=== PATIENT | female | born 1940 | race Two or more races ===

== ENCOUNTER 2017-05-18 20:31 | Inpatient (IN) | payer OTHER ==
[~2017-05-18] VITALS: Ht 30.5 cm; Wt 107.0 kg
[2017-05-18 20:50] VITALS: BP 138/66
[2017-05-18] MEDS ORDERED: ACETAMINOPHEN 325 MG TAB PO PRN (21:45)
[2017-05-18] MEDS ORDERED: ONDANSETRON HCL 4 MG/2 ML VIAL IV PRN (21:45)
[2017-05-18] MEDS ORDERED: FAMOTIDINE 20 MG TAB PO SCH (22:01)
[2017-05-18] MEDS ORDERED: DOCUSATE SOD 100 MG CAP PO SCH (22:01)
[2017-05-18] MEDS ORDERED: cefTRIAXone 1GM/10ml IVPUSH 10 ML IV SCH (22:03)
[2017-05-18] MEDS ORDERED: cefTRIAXone 1GM/10ml IVPUSH 10 ML IV ONE (23:00)
[2017-05-19] MEDS: diphenhdrAMINE HCL 50 MG/1 ML VL IV PRN (00:25)
[2017-05-19 04:55] VITALS: BP 133/70
[2017-05-19 07:03] LABS: INR 1.04 (0.9-1.15); Partial Thromboplastin Time 27.2 sec (22.64-33.71); Prothrombin Time 11.3 sec (9.37-12.3)
[2017-05-19 07:05] LABS: Basophils # (auto) 0 uL; Basophils % (auto) 0.6 % (0.0-2.0); Eosinophils # (auto) 0.4 uL; Eosinophils % (auto) 5.5 % (0.0-7.0); Hematocrit 35.2 % (36.0-46.0); Hemoglobin 11.6 g/dL (12.2-16.2); Lymphocytes # (auto) 3.4 uL; Lymphocytes % (auto) 48.2 % (10.0-50.0); Mean Corpuscular Hemoglobin 29.3 pg (28.0-32.0); Mean Corpuscular Hgb Conc. 32.9 g/dL (32.0-36.0); Mean Corpuscular Volume 88.9 fL (80.0-100.0); Monocytes # (auto) 0.9 uL; Monocytes % (auto) 12.5 % (0.0-12.0); Neutrophils # (auto) 2.4 uL; Neutrophils % (auto) 33.2 % (37.0-80.0); Nucleated Red Blood Cells % 0.1 %; Platelet Count (auto) 284 10^3/uL (140-450); Red Blood Cells 3.96 10^6/uL (4.0-5.20); Red Cell Distribution Width 16.4 % (11.8-14.3); White Blood Cell 7.1 10^3/uL (4.4-10.8)
[2017-05-19 07:39] LABS: BUN/Creatinine Ratio 14.3; Calcium 9.1 mg/dL (8.5-10.1); Potassium 3.6 mmol/L (3.5-5.1)
[2017-05-19 09:00] VITALS: BP 121/67
[2017-05-19] MEDS: DOCUSATE SOD 100 MG CAP PO SCH ×2 (11:33→21:56)
[2017-05-19] MEDS: FAMOTIDINE 20 MG TAB PO SCH ×2 (11:33→21:26)
[2017-05-19 13:00] VITALS: BP 129/87
[2017-05-19 14:13] LABS: Urine Bacteria FEW /hpf (None Seen); Urine Blood 1+ /uL (Negative); Urine Mucus FEW (None Seen); Urine Specific Gravity 1.014 (1.001-1.035); Urine WBC 41 /hpf (0 - 5)
[2017-05-19 17:00] VITALS: BP 118/69
[2017-05-19] MEDS: HYDROcodone-ACET 5/325MG TAB PO PRN ×2 (21:56→23:21)
[2017-05-19] MEDS: cefTRIAXone 1GM/10ml IVPUSH 10 ML IV SCH (21:58)
[2017-05-19 22:00] VITALS: BP 120/71
[2017-05-20 05:00] VITALS: BP 123/77
[2017-05-20 08:00] VITALS: BP 93/62
[2017-05-20] MEDS: DOCUSATE SOD 100 MG CAP PO SCH ×2 (09:17→21:26)
[2017-05-20] MEDS: FAMOTIDINE 20 MG TAB PO SCH ×2 (09:17→21:27)
[2017-05-20 12:00] VITALS: BP 117/65
[2017-05-20 17:00] VITALS: BP 116/83
[2017-05-20] MEDS: cefTRIAXone 1GM/10ml IVPUSH 10 ML IV SCH (21:26)
[2017-05-20 23:04] VITALS: BP 129/66
[2017-05-21] MEDS: diphenhdrAMINE HCL 50 MG/1 ML VL IV PRN ×2 (00:17→05:46)
[2017-05-21 05:00] VITALS: BP 125/59
[2017-05-21 08:00] VITALS: BP 100/68
[2017-05-21 09:00] VITALS: BP 100/68
[2017-05-21] MEDS: FAMOTIDINE 20 MG TAB PO SCH ×2 (09:44→22:01)
[2017-05-21] MEDS: DOCUSATE SOD 100 MG CAP PO SCH ×2 (09:44→22:00)
[2017-05-21] MEDS ORDERED: LIDOCAINE 2%HCL (LOCAL ANESTH.) INJ 20ML MDV ONE (10:52)
[2017-05-21] MEDS ORDERED: IOHEXOL 350 MG/ML 100ML IJ ONE (10:52)
[2017-05-21] MEDS ORDERED: MIDAZOLAM HCL 1MG/1ML-2 ML VIAL ONE (11:23)
[2017-05-21] MEDS ORDERED: fentaNYL CITRATE 100 MCG/2 ML VL ONE (11:23)
[2017-05-21] MEDS ORDERED: IBUP200C14 PO (18:03)
[2017-05-21] MEDS ORDERED: CEPH250C PO (18:03)
[2017-05-21 20:00] VITALS: BP 131/80
[2017-05-21 22:00] VITALS: BP 131/80
[2017-05-21] MEDS: cefTRIAXone 1GM/10ml IVPUSH 10 ML IV SCH (22:00)
[2017-05-21] MEDS: APIXABAN 5 MG TAB PO SCH (22:01)
[2017-05-22] VITALS (7 sets, daily range): BP systolic 114–132; BP diastolic 50–68
[2017-05-22 07:09] LABS: Basophils # (auto) 0 uL; Basophils % (auto) 0.6 % (0.0-2.0); Eosinophils # (auto) 0.3 uL; Eosinophils % (auto) 4.2 % (0.0-7.0); Hematocrit 37.1 % (36.0-46.0); Hemoglobin 12.2 g/dL (12.2-16.2); Lymphocytes # (auto) 3.2 uL; Lymphocytes % (auto) 39.9 % (10.0-50.0); Mean Corpuscular Hemoglobin 29.3 pg (28.0-32.0); Mean Corpuscular Hgb Conc. 32.9 g/dL (32.0-36.0); Mean Corpuscular Volume 89.3 fL (80.0-100.0); Monocytes # (auto) 0.9 uL; Monocytes % (auto) 11.3 % (0.0-12.0); Neutrophils # (auto) 3.6 uL; Nucleated Red Blood Cells % 0.1 %; Platelet Count (auto) 247 10^3/uL (140-450); Red Blood Cells 4.15 10^6/uL (4.0-5.20); Red Cell Distribution Width 16.9 % (11.8-14.3); White Blood Cell 8.1 10^3/uL (4.4-10.8)
[2017-05-22 07:25] LABS: INR 1.04 (0.9-1.15); Prothrombin Time 11.3 sec (9.37-12.3)
[2017-05-22] MEDS: DOCUSATE SOD 100 MG CAP PO SCH (09:10)
[2017-05-22] MEDS: APIXABAN 5 MG TAB PO SCH ×2 (09:10→21:37)
[2017-05-22] MEDS: FAMOTIDINE 20 MG TAB PO SCH ×2 (09:10→21:37)
[2017-05-22] MEDS ORDERED: LACTULOSE 20Gm/30ML SOLN PO ONE (15:15)
[2017-05-22] MEDS: HYDROcodone-ACET 5/325MG TAB PO PRN (19:49)
[2017-05-22] MEDS: LACTULOSE 20Gm/30ML SOLN PO SCH (21:37)
[2017-05-22] MEDS: SENNA 8.6 MG TAB PO SCH (21:38)
[2017-05-23] VITALS (7 sets, daily range): BP systolic 120–160; BP diastolic 55–77
[2017-05-23] MEDS: HYDROcodone-ACET 5/325MG TAB PO PRN (04:03)
[2017-05-23] MEDS: LACTULOSE 20Gm/30ML SOLN PO SCH ×2 (10:10→21:40)
[2017-05-23] MEDS: FAMOTIDINE 20 MG TAB PO SCH ×2 (10:10→21:35)
[2017-05-23] MEDS: APIXABAN 5 MG TAB PO SCH ×2 (10:10→21:35)
[2017-05-23] MEDS ORDERED: APIX5TAB PO (11:50)
[2017-05-23] MEDS ORDERED: FAM20T PO (11:50)
[2017-05-23] MEDS ORDERED: MAGNESIUM CITRATE SOLUTION 300 ML BTL PO ONE (12:00)
[2017-05-23] MEDS ORDERED: BISACODYL 10 MG RECT SUPP PR ONE (12:00)
[2017-05-23] MEDS ORDERED: LACTULOSE 20Gm/30ML SOLN PO ONE (14:30)
[2017-05-23] MEDS ORDERED: GOLYTELY 4L KIT PO ONE (16:15)
[2017-05-23] MEDS: SENNA 8.6 MG TAB PO SCH (21:40)
[2017-05-24 05:03] VITALS: BP 109/61
[2017-05-24 10:10] VITALS: BP 127/72
== END 2017-05-24 09:08 | disposition home or self-care (01) | DRG 253 ==
LOC: CENTRAL 20:31 → TELE-CENTR 05-19 03:46
PROVIDERS: ADMIT Internal Medicine; ATTEND Internal Medicine
PROC: 06H03DZ Insertion of Intraluminal Device into Inferior Vena Cava, Percutaneous Approach (ICD-10-PCS; principal; 2017-05-21)
DX: I82.413 Acute embolism and thrombosis of femoral vein, bilateral (principal); N39.0 Urinary tract infection, site not specified; I82.431 Acute embolism and thrombosis of right popliteal vein; I11.9 Hypertensive heart disease without heart failure; Z68.45 Body mass index [BMI] 70 or greater, adult; R31.0 Gross hematuria; K59.00 Constipation, unspecified; E66.9 Obesity, unspecified; Z74.01 Bed confinement status; Z87.81 Personal history of (healed) traumatic fracture; Z82.49 Family history of ischemic heart disease and other diseases of the circulatory system; Z88.5 Allergy status to narcotic agent
CPT/HCPCS: 36415; 37191; 71045; 74021; 80048; 81001; 85025; 85610; 85730; 87081; 87086; 93005; 93306; 93970; 99152; J2250; J2405

== ENCOUNTER 2017-05-27 04:47 | Emergency (ER) | payer OTHER ==
[~2017-05-27] VITALS: Ht 154.9 cm; Wt 69.9 kg
[~2017-05-27 04:47] MED LIST: APIX5TAB PO; FAM20T PO
[2017-05-27] MEDS ORDERED: MORPHINE SULFATE 4 MG/ML SYR/VIAL IV ONE (07:00)
[2017-05-27] MEDS ORDERED: ONDANSETRON HCL 4 MG/2 ML VIAL IV ONE (07:00)
[2017-05-27 07:03] LABS: Basophils # (auto) 0.1 uL; Basophils % (auto) 1.2 % (0.0-2.0); Eosinophils # (auto) 0.3 uL; Eosinophils % (auto) 4.1 % (0.0-7.0); Hematocrit 36.9 % (36.0-46.0); Hemoglobin 11.9 g/dL (12.2-16.2); Lymphocytes # (auto) 2.7 uL; Lymphocytes % (auto) 39.3 % (10.0-50.0); Mean Corpuscular Hemoglobin 28.9 pg (28.0-32.0); Mean Corpuscular Hgb Conc. 32.3 g/dL (32.0-36.0); Mean Corpuscular Volume 89.3 fL (80.0-100.0); Monocytes # (auto) 0.9 uL; Monocytes % (auto) 12.7 % (0.0-12.0); Neutrophils % (auto) 42.7 % (37.0-80.0); Nucleated Red Blood Cells % 0.2 %; Platelet Count (auto) 300 10^3/uL (140-450); Red Blood Cells 4.14 10^6/uL (4.0-5.20); Red Cell Distribution Width 16.9 % (11.8-14.3); White Blood Cell 6.9 10^3/uL (4.4-10.8)
[2017-05-27 07:11] LABS: Alanine Aminotransferase 12 U/L (13-56); Albumin 2.5 g/dL (3.4-5.0); Anion Gap 4 (5-15); BUN/Creatinine Ratio 15.6; Blood Urea Nitrogen 10 mg/dL (7-18); Calcium 8.5 mg/dL (8.5-10.1); Carbon Dioxide 29 mmol/L (21-32); Chloride 102 mmol/L (98-107); GFR African American 115 mL/min; GFR Non-African American 95 mL/min; Glucose 107 mg/dL (74-106); Magnesium 2.2 mg/dL (1.6-2.6); Sodium 135 mmol/L (136-145)
[2017-05-27 07:17] LABS: Alkaline Phosphatase 111 U/L (45-117); Aspartate Aminotransferase 16 U/L (15-37); Bilirubin, Total 0.4 mg/dL (0.2-1.0); Total Protein 6.4 g/dL (6.4-8.2)
[2017-05-27 07:29] LABS: INR 1.1 (0.9-1.15)
[2017-05-27] MEDS ORDERED: IOHEXOL 350 MG/ML 100ML IJ ONE (07:54)
[2017-05-27 08:07] VITALS: BP 127/62
[2017-05-27] MEDS ORDERED: POTASSIUM CHL 20 Meq TABLET PO ONE (10:00)
== END 2017-05-27 11:22 | disposition home or self-care (01) ==
LOC: EDBD 04:47 → ER 04:49
DX: R06.00 Dyspnea, unspecified (principal); M25.572 Pain in left ankle and joints of left foot; M25.571 Pain in right ankle and joints of right foot; E87.6 Hypokalemia; Z88.6 Allergy status to analgesic agent; Z88.8 Allergy status to other drugs, medicaments and biological substances
CPT/HCPCS: 36415; 71045; 71275; 80053; 83735; 83880; 84484; 85025; 85379; 85610; 85730; 93005; 94761; 96374; 96375; 99285; J2270; J2405; Q9967